=== PATIENT | female | born 2000 | race African-American/Black ===

== ENCOUNTER 2019-06-18 10:02 | Emergency (ER) | payer MEDICAID, OTHER | END 2019-06-18 12:15 | disposition home or self-care (01) | LOC: ERS 10:02 → EDSEX 10:02 → ERS 12:15 | DX: O99.89 Other specified diseases and conditions complicating pregnancy, childbirth and the puerperium (principal); R42 Dizziness and giddiness; R51 Headache; Z3A.13 13 weeks gestation of pregnancy ==

== ENCOUNTER 2019-08-08 15:42 | Emergency (ER) | payer OTHER ==
[2019-08-08 16:13] LABS: #Eosinphils 0.7 thou/uL (0.0-0.7); #Lymphocytes 1.9 thou/uL (1.20-3.40); #Monocytes 0.8 thou/uL (0.11-0.59); #Neutrophils 10.2 thou/uL (1.40-6.50); %Basophils 0.3 % (0.0-1.0); %Eosinophils 4.9 % (0.0-10.0); %Lymphocytes 13.9 % (28.0-48.0); %Monocytes 5.9 % (0.0-4.0); Hemoglobin 12.5 g/dL (12.0-16.0); Mean Corpuscular HGB CONC 34.6 g/dL (32.0-36.0); Mean Corpuscular Hemoglobin 29.5 pg (25.0-35.0); Mean Corpuscular Volume 85.4 fL (78.0-98.0); Platelet Count 280 thou/uL (130-400); RBC Distribution Width 12.4 % (11.5-14.5); Red Blood Cell (RBC) Count 4.23 mill/uL (4.00-5.20); White Blood Cell (WBC) Count 13.6 thou/uL (4.8-10.8)
[2019-08-08 16:36] LABS: ALT (SGPT) 17 U/L (8-55); AST (SGOT) 11 U/L (5-30); Albumin 3.5 g/dL (3.5-5.0); Alkaline Phosphatase 86 U/L (40-100); Anion Gap 10 mmol/L (10-20); BUN (Urea Nitrogen) 5 mg/dL (8.4-21.0); Bilirubin, Total 0.3 mg/dL (0.2-1.2); Calc. Creatinine Clearance 0 mL/min (70-130); Calcium 9.2 mg/dL (7.8-10.44); Carbon Dioxide 22 mmol/L (22-29); Chloride 106 mmol/L (98-107); Estimated GFR-MDRD Greater than 90; Globulin 3.4 g/dL (2.4-3.5); Glucose 98 mg/dL (70-105); Potassium 3.4 mmol/L (3.5-5.1); Protein, Total 6.9 g/dL (6.0-8.3); Sodium 135 mmol/L (136-145)
[2019-08-08] MEDS ORDERED: Metoclopramide HCl 10 MG/2 ML VIAL ONE (19:16)
[2019-08-08 22:18] LABS: Bilirubin Negative (Negative); Blood, Urine Negative (Negative); Calcium Oxalate Crystals 3+ HPF (None Seen); Clarity Turbid (Clear); Glucose, Urine (Dipstick) Normal (Negative); Leukocyte 500 Leu/uL (Negative); Nitrite Negative (Negative); Protein, Urine (Dipstick) 30 mg/dL (Neg-Trace); RBC/HPF 0-3 HPF (0-3); Urobilinogen Normal mg/dL (Less than 2); WBC/HPF 21-50 HPF (0-3)
[2019-08-08 22:25] LABS: Bacteria/HPF 3+ HPF (None Seen)
[2019-08-08 22:26] LABS: Mucous/LPF 3+ LPF (<2+)
== END 2019-08-08 22:25 | disposition home or self-care (01) ==
LOC: ERS 15:42
DX: O23.42 Unspecified infection of urinary tract in pregnancy, second trimester (principal); O21.2 Late vomiting of pregnancy; O10.912 Unspecified pre-existing hypertension complicating pregnancy, second trimester; Z3A.21 21 weeks gestation of pregnancy
CPT/HCPCS: 36415; 80053; 81003; 81015; 85025; 87804; 96365; 96366; J2765

== ENCOUNTER 2019-11-07 16:40 | Day surgery (SDC) | payer OTHER ==
[2019-11-07 17:15] VITALS: BP 121/68; TEMP 98.8; BMI 42.4
[2019-11-07] MEDS ORDERED: Betamet Acet/Betamet Na Ph 30 MG/5 ML VIAL ONE (17:59)
[2019-11-07] MEDS ORDERED: Betamet Acet/Betamet Na Ph 30 MG/5 ML VIAL IM SCH (18:00)
[2019-11-07] MEDS ORDERED: hydrALAZINE 20 MG/ML VIAL SLOW IVP PRN (18:10)
--- NOTE | 2019-11-07 18:49 | PRG ---
DATE OF SERVICE: 11/07/2019 PRIMARY OB: Dr. Arelis Sparks. CHIEF COMPLAINT: Decreased CHRISTY with elevated blood pressures. HISTORY OF PRESENT ILLNESS: The patient is a 19-year-old G1, P0 female with an intrauterine at 33 weeks, who was sent from the office today with concerns of low CHRISTY of 5 and blood pressures in the upper normal range. The patient reports that since she got that she has noticed her blood pressures have been running higher than normal. She reports that they run about in the 130s, that she has been checking her blood pressures at home and that is the range that she has been getting from her systolic pressures. Growth scan was done in the office today and baby is noted to be in the 19th percentile. CHRISTY at that time was 5. The patient denies headache, chest pain, shortness of breath. She has had some nausea and vomiting recently and also has had 4 or 5 days of diarrhea with 4 or 5 episodes a day, every other one being in her words large volume. The patient reports that she is urinating normally, but the urine is yellow. She denies any new rashes, hip problems, knee problems, muscle weakness. She denies vaginal bleeding or leakage of fluid. She does report some incontinence when she coughs or sneezes. She denies urinary urgency or frequency. PAST MEDICAL HISTORY: Obesity. PAST SURGICAL HISTORY: Tonsillectomy. ALLERGIES: NO KNOWN DRUG ALLERGIES. MEDICATIONS: vitamins. SOCIAL HISTORY: Denies drug, alcohol, or tobacco use. OB LABS: Unavailable at time of dictation. REVIEW OF SYSTEMS: Per HPI. PHYSICAL EXAMINATION: VITAL SIGNS: Blood pressure 135/75, heart rate of 107, respiratory rate of 18. Her pressures about the following 45 minutes have all been in the 120s over 60s to 70s. Heart rate in the 100s. Temperature 98.8. GENERAL: She appears to be in no acute distress. She is alert, oriented, cooperative, and pleasant to interact with. HEENT: Head is normocephalic and atraumatic. LUNGS: Clear to auscultation bilaterally. HEART: Has regular rate and rhythm. ABDOMEN: Gravid, soft, nontender. EXTREMITIES: Nontender, nonedematous. She has no CVA tenderness. GENITOURINARY: Vulva is without masses, lesions, or erythema. Vagina is moist. Cervix is visibly closed. There is no pulling on Valsalva or bearing down. heart tracing shows the fetus with a baseline in the 150s with moderate long-term variability, positive 15 x 15 accelerations, no decelerations. No contractions visible on the monitor. AmniSure test was collected by Dr. Sparks and sent to the hospital. Results are negative. ASSESSMENT AND PLAN: The patient is a 19-year-old G1, P0 female with an intrauterine at 33 weeks with a decreased CHRISTY of 5. Blood pressures here have all been within normal limits. She has no concerning symptomatology and no evidence of rupture of membranes. The patient has been counseled with recommendations of steroids today and tomorrow with a repeat ultrasound tomorrow to see if her CHRISTY has improved. It is possible that the patient's last week or so could have put her in a dehydrated state, possibly affecting hydration of the baby. Baby's size does not indicate IUGR at this time, fetus has a category 1 tracing, reactive NST. The patient is being discharged home after receiving her first dose of steroids, 12 mg of betamethasone IM. She will be back tomorrow for a second shot. If her CHRISTY worsens tomorrow, then we will re-evaluate. If it is improving, then patient can follow up with her primary OB as scheduled. Job ID: [id number]
== END 2019-11-07 18:25 | disposition home health service (06) ==
LOC: L&D/OP 16:40
PROVIDERS: ATTEND Student in an Organized Health Care Education/Training Program
DX: O41.03X0 Oligohydramnios, third trimester, not applicable or unspecified (principal); O99.89 Other specified diseases and conditions complicating pregnancy, childbirth and the puerperium; R03.0 Elevated blood-pressure reading, without diagnosis of hypertension; O99.213 Obesity complicating pregnancy, third trimester; E66.9 Obesity, unspecified; Z3A.33 33 weeks gestation of pregnancy
CPT/HCPCS: 84112; 87077; 87081; 96372; 99283; J0702

== ENCOUNTER 2019-11-08 17:09 | Day surgery (SDC) | payer OTHER ==
[2019-11-08] MEDS ORDERED: Betamet Acet/Betamet Na Ph 30 MG/5 ML VIAL ONE (17:25)
[2019-11-08] MEDS ORDERED: Betamet Acet/Betamet Na Ph 30 MG/5 ML VIAL IM SCH (17:30)
--- NOTE | 2019-11-08 18:43 | ULT ---
[facility] History: Evaluate amniotic fluid index Comparison: None. Findings: Real-time grayscale, color, and spectral analysis of the gravid uterus was performed. The amniotic fluid index measures 10.2 cm. heart rate documented at 152 bpm. The placenta is posterior and the position is vertex. Impression: Normal amniotic fluid index of 10.2 cm.
--- NOTE | 2019-11-09 11:44 | SS ---
DATE OF ADMISSION: 11/08/2019 DATE OF DISCHARGE: 11/08/2019 REGULAR PHYSICIAN: Arelis Sparks MD EVALUATING PHYSICIAN: Jairo Vee MD CHIEF COMPLAINT: Here for followup, 2nd betamethasone shot. HISTORY OF PRESENT ILLNESS: Ms. David is a 19-year-old white G1, P0 with an estimated date of confinement of 12/21/2019, who was seen yesterday for concern of elevated blood pressures and found to have an CHRISTY of 5. She was given a dose of Celestone and was told to return today for re-evaluation and a 2nd Celestone shot. She is without complaints today. She reports active movement. She denies ruptured membranes or leakage of fluid. PAST MEDICAL HISTORY: None. PAST SURGICAL HISTORY: Tonsillectomy. CURRENT MEDICATIONS: vitamins. ALLERGIES: NO KNOWN ALLERGIES. SOCIAL HISTORY: Denies alcohol, tobacco, or drug use. REVIEW OF SYSTEMS: Denies nausea, vomiting, fever, chills, ruptured membranes, vaginal bleeding, or recent travel. PHYSICAL EXAMINATION: VITAL SIGNS: Stable. She is afebrile. Serial blood pressures here are 110 to 120s systolic over 70s diastolic. GENERAL: She is in no acute distress. heart rate tracing is stable. There are no decelerations. No uterine contractions are seen. Ultrasound done today shows an CHRISTY of 10 per verbal report from materials mgmt tech. Second betamethasone shot is ordered and given. ASSESSMENT: 1. Thirty-three week intrauterine . 2. No evidence of elevated blood pressures at this time. 3. Decreased amniotic fluid index, now resolved. PLAN: The patient will be dismissed to home. She was given PIH precautions and told to hydrate and rest at home. She states she has an appointment with Dr. Sparks in [address] Sparks was notified of this encounter. Job ID: [id number]
== END 2019-11-08 18:40 | disposition home or self-care (01) ==
LOC: L&D/OP 17:09
PROVIDERS: ATTEND Obstetrics & Gynecology
DX: Z29.8 Encounter for other specified prophylactic measures (principal); Z3A.33 33 weeks gestation of pregnancy
CPT/HCPCS: 76815; 96372; 99281; J0702

== ENCOUNTER 2019-11-26 11:52 | Inpatient (IN) | payer OTHER ==
[~2019-11-26 11:52] MED LIST: Bupivacaine/Epinephrine 0.25% 30 ML VIAL ONE
[2019-11-26 13:02] VITALS: BMI 43.6
[2019-11-26] MEDS ORDERED: Butorphanol Tartrate 1 MG/ML VIAL SLOW IVP PRN (13:11)
[2019-11-26] MEDS ORDERED: Ondansetron PF 4 MG/2 ML Vial IVP PRN (13:11)
[2019-11-26] MEDS ORDERED: hydrALAZINE 20 MG/ML VIAL SLOW IVP PRN (13:11)
[2019-11-26] MEDS ORDERED: Ibuprofen 800 MG TAB PO PRN (13:11)
[2019-11-26] MEDS ORDERED: Carboprost 250 MCG/ML AMP IM PRN (13:11)
[2019-11-26] MEDS ORDERED: Zolpidem Tartrate 5 MG TAB PO PRN (13:11)
[2019-11-26] MEDS ORDERED: Misoprostol 200 MCG TAB PR PRN (13:11)
[2019-11-26] MEDS ORDERED: Lidocaine 1% (PF) 30 ML VIAL SC PRN (13:11)
[2019-11-26] MEDS ORDERED: Methylergonovine 0.2 MG/ML VIAL IM PRN (13:11)
[2019-11-26] MEDS ORDERED: Diphenoxylate HCl/Atropine Tablet PO PRN (13:11)
[2019-11-26] MEDS ORDERED: NS / Oxytocin 40 units/1000ml 1,000 ML IV PRN (13:11)
[2019-11-26] MEDS ORDERED: Promethazine HCl 25 MG/ML VIAL IM PRN (13:11)
[2019-11-26] MEDS ORDERED: NS w/ Oxytocin 10 units 500 ML IV SCH (13:15)
[2019-11-26] MEDS ORDERED: Vancomycin 1 GM/200 ML BAG ONE (13:42)
[2019-11-26 13:53] LABS: Hemoglobin 12.5 g/dL (12.0-16.0); Mean Corpuscular HGB CONC 33.1 g/dL (32.0-36.0); Mean Corpuscular Hemoglobin 30.1 pg (25.0-35.0); Mean Corpuscular Volume 90.9 fL (78.0-98.0); Mean Platelet Volume 8.6 fL (7.4-10.4); Platelet Count 248 thou/uL (130-400); RBC Distribution Width 13.1 % (11.5-14.5); Red Blood Cell (RBC) Count 4.13 mill/uL (4.00-5.20); White Blood Cell (WBC) Count 15.2 thou/uL (4.8-10.8)
[2019-11-26 14:05] LABS: ALT (SGPT) 7 U/L (8-55); AST (SGOT) 12 U/L (5-34); Albumin 3.2 g/dL (3.5-5.0); Alkaline Phosphatase 121 U/L (40-100); Anion Gap 12 mmol/L (10-20); BUN (Urea Nitrogen) 7 mg/dL (7.0-18.7); Bilirubin, Total Less than 0.2 mg/dL (0.2-1.2); Calc. Creatinine Clearance 314 mL/min (70-130); Calcium 9.1 mg/dL (7.8-10.44); Carbon Dioxide 22 mmol/L (22-29); Chloride 106 mmol/L (98-107); Estimated GFR-MDRD Greater than 90; Globulin 2.8 g/dL (2.4-3.5); Glucose 89 mg/dL (70-105); Potassium 3.8 mmol/L (3.5-5.1); Sodium 136 mmol/L (136-145)
[2019-11-26] MEDS: Misoprostol 100 MCG TAB VAG SCH ×3 (14:20→22:36)
[2019-11-26] MEDS: Vancomycin 1 GM in Premix Bag 1 BAG IVPB SCH (14:21)
[2019-11-26 14:22] LABS: HBSAg Index 0.18 S/CO (0-0.99); Hep B Surf Ag Non-Reactive S/CO (NonReactive)
[2019-11-26 14:23] LABS: Syphilis Antibody Nonreactive (Nonreactive); Syphilis Antibody Index 0.09 S/CO (<1.00 Non-Reactive)
[2019-11-26] MEDS: Lactated Ringer's 1,000 ML IV SCH ×2 (17:43→22:13)
[2019-11-27] MEDS ORDERED: Fentanyl 4 mcg/Bup 0.1% Cadd 100 ML ONE (00:34)
[2019-11-27] MEDS: Lactated Ringer's 1,000 ML IV SCH (01:13)
[2019-11-27] MEDS: Vancomycin 1 GM in Premix Bag 1 BAG IVPB SCH (01:57)
[2019-11-27] MEDS ORDERED: Promethazine HCl 25 MG/ML VIAL IM PRN ×2 (02:03→07:03)
[2019-11-27] MEDS ORDERED: Ondansetron PF 4 MG/2 ML Vial IVP PRN ×2 (02:03→07:03)
[2019-11-27] MEDS ORDERED: Lactated Ringer's 500 ML IV PRN (02:03)
[2019-11-27] MEDS ORDERED: Naloxone HCl 0.4 mg/ml Vial IVP PRN ×2 (02:03)
[2019-11-27] MEDS ORDERED: EPHEDRINE 25 MG/5 ML SYRINGE SLOW IVP PRN (02:03)
[2019-11-27] MEDS ORDERED: diphenhydrAMINE 50 MG/ML VIAL IVP PRN (02:03)
[2019-11-27] MEDS ORDERED: Communication Order-Pharmacy FS SCH (02:15)
[2019-11-27] MEDS ORDERED: Fentanyl 4 mcg/Bupivacaine 0.1% Cassette 100 ML EPIDURAL SCH (02:15)
[2019-11-27] MEDS ORDERED: Terbutaline Sulfate 1 MG/ML VIAL ONE (03:39)
--- NOTE | 2019-11-27 05:40 | PDOC.LDHP ---
Labor and Delivery H&P Chief complaint: scheduled induction HPI: 19yo at 36w3d by LMP sent over for IOL 2/2 oligohydramnios on sono. s/p cytotec ripening. Current gestational age (weeks): 36 Due date: 12/21/19 Dating criteria: last menstrual period Grav: 1 Para: 0 Current complications: none Abnormal US findings: Yes (SGA, oligohydramnios, pyelectasis bilateral) Past Medical History: depression Current medications: pre- vitamins, other (sertraline) Previous surgical history: none Allergies/Adverse Reactions: Allergies Allergy/AdvReac Type Severity Reaction Status Date / Time acetaminophen Allergy Anaphylaxis Verified 11/07/19 17:06 Penicillins Allergy Rash Verified 11/07/19 17:06 Social history: none - Physical Exam Vital signs reviewed and normal: yes General: NAD Heart: RRR Lungs: CTAB Abdomen: gravid Extremeties: no edema FHT: category 2, variable decelerations Charlton contractions every: 2-3min - Vaginal Exam cm dilated: 10 Effacement: 100% Station: 3+ - OB Labs Blood type: O RH: positive Antibody Screen: negative HIV: negative RPR: negative HEPSAg: negative 1 hour GCT: negative GBS: positive Urine drug screen: negative Rubella: immune - Assessment L&D Assessment: medically indicated induction - Plan Plan: admit to L&D, cervical ripening, labor augmentation if indicated, GBS antibiotic prophylaxis, informed consent obtained, anesthesia consult for pain management
--- NOTE | 2019-11-27 05:43 | PDOC.OPDEL ---
OB Operative/Delivery Note Delivery Dr/Surgeon: Bridger Assist: n/a Pre-Delivery Diagnosis: medically indicated induction Procedure/Post Delivery Dx: spontaneous vaginal delivery Weeks gestation: 36 Anesthesia: epidural - Findings A Sex: male Weight: 4 lb 10 oz - 1 min: 8 - 5 min: 9 - Additional Findings/Plan Placenta delivered: spontaneous Repaired Obstetrical Laceration: none Estimated blood loss: 20cc Post delivery plan: routine recovery
[2019-11-27] MEDS: Misoprostol 100 MCG TAB VAG SCH ×2 (07:01→07:02)
[2019-11-27] MEDS ORDERED: Lanolin Ointment 7 GM TUBE TOP PRN (07:03)
[2019-11-27] MEDS ORDERED: Bisacodyl 10 MG SUPP PR PRN (07:03)
[2019-11-27] MEDS ORDERED: Preparation H Ointment 28 GM TUBE PR PRN (07:03)
[2019-11-27] MEDS ORDERED: Milk Of Magnesia 30 ML UDCUP PO PRN (07:03)
[2019-11-27] MEDS ORDERED: diphenhydrAMINE 25 MG CAP PO PRN (07:03)
[2019-11-27] MEDS ORDERED: hydrALAZINE 20 MG/ML VIAL SLOW IVP PRN (07:03)
[2019-11-27] MEDS ORDERED: Benzocaine-Menthol 82.5 ML CAN TOP PRN (07:03)
[2019-11-27] MEDS ORDERED: Adacel (T-DAP) 0.5 ML SYRINGE IM ONE (07:03)
[2019-11-27] MEDS ORDERED: traMADol HCl 50 MG TAB PO PRN (07:03)
[2019-11-27] MEDS ORDERED: NS / Oxytocin 40 units/1000ml 1,000 ML IV SCH (07:03)
[2019-11-27] MEDS: Docusate Calcium (SURFAK) 240 MG CAP PO SCH ×2 (09:40→21:37)
[2019-11-27] MEDS: Ferrous Sulfate 325 MG TAB PO SCH ×2 (09:40→18:07)
[2019-11-27] MEDS: Prenatal Vitamin 1 TAB PO SCH (09:59)
[2019-11-27] MEDS: Ibuprofen 800 MG TAB PO SCH ×2 (14:14→21:37)
[2019-11-28] MEDS: Ibuprofen 800 MG TAB PO SCH ×3 (05:33→22:17)
[2019-11-28] MEDS: Ferrous Sulfate 325 MG TAB PO SCH ×2 (08:18→16:34)
[2019-11-28] MEDS: Prenatal Vitamin 1 TAB PO SCH (08:19)
[2019-11-28] MEDS: Docusate Calcium (SURFAK) 240 MG CAP PO SCH ×2 (08:19→20:13)
[2019-11-28] MEDS: traMADol HCl 50 MG TAB PO PRN ×2 (11:59→20:13)
--- NOTE | 2019-11-28 20:27 | PDOC.PP ---
Post Progress Note Post Day #: 1 PO intake tolerated: yes Flatus: yes Ambulation: yes Vital Signs (12 hours) Temp Pulse Resp BP Pulse Ox 11/28/19 19:36 99.8 F H 106 H 20 135/60 99 Weight Weight 313 lb - Physical Examination General: NAD Respiratory: non-labored breathing Abdominal: no distention, appropriately TTP Fundus firm & at: umb Neurological: no gross focal deficits Psychiatric: normal affect Result Diagrams: 11/26/19 13:33 11/26/19 13:33 Additional Labs: Post Labs Blood Type O POSITIVE 11/26/19 14:49 Hep Bs Antigen Non-Reactive S/CO (NonReactive) 11/26/19 13:33 - Assessment/Plan PPD1 s/p PTSVD VSSAF Doing well, lochia < menses, pain controlled Rh pos RImm Cont PP care, home tomorrow.
[2019-11-29] MEDS: Ibuprofen 800 MG TAB PO SCH (04:53)
[2019-11-29] MEDS: Ferrous Sulfate 325 MG TAB PO SCH (07:48)
[2019-11-29] MEDS: Prenatal Vitamin 1 TAB PO SCH (07:51)
[2019-11-29] MEDS: Docusate Calcium (SURFAK) 240 MG CAP PO SCH (07:51)
[2019-11-29 09:39] VITALS: BP 114/55; TEMP 97.9
== END 2019-11-29 14:25 | disposition home or self-care (01) | DRG 807 ==
LOC: L&D 11:52 → 3SW 11-27 08:33
PROVIDERS: ADMIT Student in an Organized Health Care Education/Training Program; ATTEND Student in an Organized Health Care Education/Training Program
PROC: 10E0XZZ Delivery of Products of Conception, External Approach (ICD-10-PCS; principal; 2019-11-27)
PROC: 3E033VJ Introduction of Other Hormone into Peripheral Vein, Percutaneous Approach (ICD-10-PCS; 2019-11-27)
DX: O41.03X0 Oligohydramnios, third trimester, not applicable or unspecified (principal); Z37.0 Single live birth; Z3A.36 36 weeks gestation of pregnancy; O99.344 Other mental disorders complicating childbirth; F99 Mental disorder, not otherwise specified
CPT/HCPCS: 36415; 51702; 80053; 85027; 86780; 86850; 86900; 86901; 87340; 88307; J3105; J3370

== ENCOUNTER 2021-10-17 10:28 | Outpatient (CLI) | payer OTHER | END 2021-10-17 10:29 | disposition home or self-care (01) | LOC: BICULT 10:28 | PROVIDERS: ATTEND Family Medicine | DX: O09.892 Supervision of other high risk pregnancies, second trimester (principal); Z3A.20 20 weeks gestation of pregnancy | CPT/HCPCS: 76805 ==

== ENCOUNTER 2021-11-23 06:09 | Emergency (ER) | payer OTHER ==
[2021-11-23] MEDS ORDERED: Ondansetron PF 4 MG/2 ML Vial ONE (06:25)
[2021-11-23 06:45] LABS: #Lymphocytes 0.5 thou/uL (1.20-3.40); #Monocytes 0.4 thou/uL (0.11-0.59); #Neutrophils 7.6 thou/uL (1.40-6.50); %Basophils 0.4 % (0.0-1.0); %Eosinophils 0.3 % (0.0-10.0); %Lymphocytes 6.1 % (21.0-51.0); %Monocytes 4.6 % (0.0-10.0); %Neutrophils 88.6 % (42.0-75.0); Hemoglobin 12.7 g/dL (12.0-16.0); Mean Corpuscular HGB CONC 33.6 g/dL (32.0-36.0); Mean Corpuscular Hemoglobin 29.9 pg (27.0-31.0); Mean Platelet Volume 6.6 fL (7.4-10.4); Platelet Count 293 thou/uL (130-400); RBC Distribution Width 12.7 % (11.5-14.5); Red Blood Cell (RBC) Count 4.25 mill/uL (4.20-5.40); White Blood Cell (WBC) Count 8.6 thou/uL (4.8-10.8)
[2021-11-23 07:04] LABS: ALT (SGPT) 7 U/L (8-55); AST (SGOT) 13 U/L (5-34); Albumin 3.3 g/dL (3.5-5.0); Alkaline Phosphatase 84 U/L (40-110); Anion Gap 15 mmol/L (10-20); BUN (Urea Nitrogen) 6 mg/dL (7.0-18.7); Bilirubin, Total 0.6 mg/dL (0.2-1.2); Calc. Creatinine Clearance 0 mL/min (70-130); Calcium 8.8 mg/dL (7.8-10.44); Carbon Dioxide 18 mmol/L (22-29); Chloride 106 mmol/L (98-107); Globulin 3.4 g/dL (2.4-3.5); Glucose 100 mg/dL (70-105); Lipase 13 U/L (8-78); Potassium 3.7 mmol/L (3.5-5.1); Protein, Total 6.7 g/dL (6.0-8.3); Sodium 135 mmol/L (136-145)
[2021-11-23 07:29] LABS: Bacteria/HPF None Seen HPF (None Seen); Bilirubin Negative (Negative); Blood, Urine Negative (Negative); Clarity Clear (Clear); Glucose, Urine (Dipstick) Normal (Negative); Ketone, Urine Greater than 150 mg/dL (Negative); Leukocyte 500 Leu/uL (Negative); Nitrite Negative (Negative); Protein, Urine (Dipstick) 50 mg/dL (Neg-Trace); Specific Gravity, Urine 1.031 (1.002-1.036); Urobilinogen Normal mg/dL (Less than 2); pH, Urine 6.5 (5.0-9.0)
== END 2021-11-23 09:00 | disposition short-term general hospital (02) ==
LOC: ERS 06:09
DX: O99.891 Other specified diseases and conditions complicating pregnancy (principal); R10.84 Generalized abdominal pain; O99.282 Endocrine, nutritional and metabolic diseases complicating pregnancy, second trimester; E86.0 Dehydration; O21.2 Late vomiting of pregnancy; O10.912 Unspecified pre-existing hypertension complicating pregnancy, second trimester; Z3A.27 27 weeks gestation of pregnancy
CPT/HCPCS: 36415; 80053; 81003; 81015; 83690; 85025; 96374; J2405

== ENCOUNTER 2022-01-13 08:57 | Outpatient (CLI) | payer OTHER | END 2022-01-13 08:58 | disposition home or self-care (01) | LOC: BICULT 08:57 | PROVIDERS: ATTEND Family Medicine | DX: O09.893 Supervision of other high risk pregnancies, third trimester (principal); Z3A.33 33 weeks gestation of pregnancy | CPT/HCPCS: 76815 ==

== ENCOUNTER 2022-11-26 16:02 | Emergency (ER) | payer OTHER ==
[2022-11-26 16:37] LABS: #Basophils 0.1 thou/uL (0.0-0.2); #Eosinphils 0.4 thou/uL (0.0-0.7); #Lymphocytes 3.2 thou/uL (1.20-3.40); #Monocytes 0.9 thou/uL (0.11-0.59); #Neutrophils 8.8 thou/uL (1.40-6.50); %Basophils 0.4 % (0.0-1.0); %Eosinophils 3.2 % (0.0-10.0); %Lymphocytes 23.7 % (21.0-51.0); %Monocytes 6.9 % (0.0-10.0); %Neutrophils 65.8 % (42.0-75.0); Hemoglobin 12.9 g/dL (12.0-16.0); Mean Corpuscular HGB CONC 33.8 g/dL (32.0-36.0); Mean Corpuscular Hemoglobin 29.4 pg (27.0-31.0); Mean Platelet Volume 7.5 fL (7.4-10.4); Platelet Count 280 10x3/uL (130-400); RBC Distribution Width 12.8 % (11.5-14.5); Red Blood Cell (RBC) Count 4.39 mill/uL (4.20-5.40); White Blood Cell (WBC) Count 13.4 10x3/uL (4.8-10.8)
[2022-11-26 16:57] LABS: Anion Gap 14 mmol/L (10-20); BUN (Urea Nitrogen) 8 mg/dL (7.0-18.7); Calc. Creatinine Clearance 0 mL/min (70-130); Calcium 9.3 mg/dL (7.8-10.44); Carbon Dioxide 21 mmol/L (22-29); Chloride 104 mmol/L (98-107); Estimated GFR 117; Glucose 82 mg/dL (70-105); Potassium 3.8 mmol/L (3.5-5.1); Sodium 135 mmol/L (136-145)
[2022-11-26 18:00] LABS: Bilirubin Negative (Negative); Blood, Urine Negative (Negative); Clarity Turbid (Clear); Glucose, Urine (Dipstick) Normal (Negative); Ketone, Urine Negative (Negative); Leukocyte 500 Leu/uL (Negative); Nitrite Negative (Negative); Protein, Urine (Dipstick) Negative (Neg-Trace); RBC/HPF 0-3 HPF (0-3); Specific Gravity, Urine 1.006 (1.002-1.036); Urobilinogen Normal mg/dL (Less than 2); pH, Urine 6.5 (5.0-9.0)
[2022-11-26 18:01] LABS: Bacteria/HPF 1+ HPF (None Seen)
== END 2022-11-26 18:40 | disposition home or self-care (01) ==
LOC: ERS 16:02
DX: O20.8 Other hemorrhage in early pregnancy (principal); D72.829 Elevated white blood cell count, unspecified; Z3A.01 Less than 8 weeks gestation of pregnancy
CPT/HCPCS: 36415; 76856; 80048; 81003; 81015; 84702; 85025; 86900; 86901

== ENCOUNTER 2023-03-27 14:01 | Outpatient (CLI) | payer OTHER | END 2023-03-27 14:02 | disposition home or self-care (01) | LOC: BICULT 14:01 | PROVIDERS: ATTEND Family Medicine | DX: O09.892 Supervision of other high risk pregnancies, second trimester (principal); Z3A.25 25 weeks gestation of pregnancy | CPT/HCPCS: 76805 ==

== ENCOUNTER 2023-05-02 08:56 | Emergency (ER) | payer OTHER, SELFPAY | END 2023-05-02 09:53 | disposition home or self-care (01) | LOC: ERS 08:56 | DX: H10.9 Unspecified conjunctivitis (principal) | CPT/HCPCS: 99283 ==

== ENCOUNTER 2023-10-10 06:28 | Emergency (ER) | payer SELFPAY ==
[2023-10-10 07:29] LABS: Influenza A by NAA Not Detected (NotDetected); Influenza B by NAA Not Detected (NotDetected); SARS-CoV-2 NAA Rapid Test DETECTED (NotDetected)
== END 2023-10-10 06:43 | disposition home or self-care (01) ==
LOC: ERS 06:28
DX: U07.1 COVID-19 (principal); J11.1 Influenza due to unidentified influenza virus with other respiratory manifestations
CPT/HCPCS: 99283

== ENCOUNTER 2023-10-25 19:50 | Emergency (ER) | payer SELFPAY ==
[2023-10-25] MEDS ORDERED: Ibuprofen 200 MG TAB ONE (20:11)
[2023-10-25] MEDS ORDERED: Vancomycin 1 GM/200 ML (FROZEN) BAG ONE (20:20)
[2023-10-25] MEDS ORDERED: Morphine 4 MG/ML VIAL ONE (20:20)
[2023-10-25 20:24] LABS: #Basophils 0.1 thou/uL (0.0-0.2); #Eosinphils 0.4 thou/uL (0.0-0.7); #Monocytes 0.8 thou/uL (0.11-0.59); %Basophils 0.4 % (0.0-1.0); %Eosinophils 3.1 % (0.0-10.0); %Lymphocytes 25.3 % (21.0-51.0); %Monocytes 5.8 % (0.0-10.0); %Neutrophils 65.2 % (42.0-75.0); Hematocrit 37.2 % (36.0-47.0); Hemoglobin 12.4 g/dL (12.0-16.0); Mean Corpuscular HGB CONC 33.3 g/dL (32.0-36.0); Mean Corpuscular Hemoglobin 28.8 pg (27.0-31.0); Mean Corpuscular Volume 86.3 fl (78.0-98.0); Mean Platelet Volume 9.6 fL (7.4-10.4); Platelet Count 306 10x3/uL (130-400); RBC Distribution Width 12.9 % (11.5-14.5); Red Blood Cell (RBC) Count 4.31 mill/uL (4.20-5.40); White Blood Cell (WBC) Count 13.7 10x3/uL (4.8-10.8)
[2023-10-25 20:46] LABS: ALT (SGPT) 17 U/L (8-55); AST (SGOT) 21 U/L (5-34); Albumin 3.9 g/dL (3.5-5.0); Alkaline Phosphatase 102 U/L (40-110); Anion Gap 10 mmol/L (10-20); BUN (Urea Nitrogen) 11 mg/dL (7.0-18.7); Bilirubin, Total 0.3 mg/dL (0.2-1.2); Calc. Creatinine Clearance 0 mL/min (70-130); Calcium 9.1 mg/dL (7.8-10.44); Carbon Dioxide 28 mmol/L (22-29); Chloride 104 mmol/L (98-107); Estimated GFR 86; Globulin 3.6 g/dL (2.4-3.5); Glucose 92 mg/dL (70-105); Potassium 3.7 mmol/L (3.5-5.1); Protein, Total 7.5 g/dL (6.0-8.3); Sodium 138 mmol/L (136-145)
[2023-10-25] MEDS ORDERED: Clindamycin/D5W 900 MG in Premix 1 BAG IVPB SCH (22:45)
== END 2023-10-25 23:25 | disposition home or self-care (01) ==
LOC: ERS 19:50
DX: L03.011 Cellulitis of right finger (principal)
CPT/HCPCS: 36415; 80053; 83605; 85025; 86140; 87040; 96361; 96365; 96366; 96367; 96375; J2270; J3370-JW; J3490

== ENCOUNTER 2024-06-10 23:16 | Emergency (ER) | payer SELFPAY ==
[2024-06-10] MEDS ORDERED: Mag-Al 1200 mg/1200 mg/30 ML UDCUP ONE (23:53)
[2024-06-10] MEDS ORDERED: Famotidine/PF 20 mg/2ml Vial ONE (23:54)
[2024-06-10] MEDS ORDERED: Lidocaine Viscous Sol 2% 15 ml UD Cup ONE (23:54)
[2024-06-10 23:55] LABS: Bilirubin Negative (Negative); Blood, Urine Negative (Negative); CAUTI Indications for Culture Pelvic or flank pain; Clarity Turbid (Clear); Glucose, Urine (Dipstick) Normal (Negative); Ketone, Urine Negative (Negative); Leukocyte 500 Leu/uL (Negative); Nitrite Negative (Negative); Protein, Urine (Dipstick) 10 mg/dL (Neg-Trace); Specific Gravity, Urine 1.023 (1.002-1.036); WBC/HPF 21-50 HPF (0-3)
[2024-06-10 23:56] LABS: Bacteria/HPF 1+ HPF (None Seen)
[2024-06-10 23:57] LABS: Urine Culture Reflex Yes Yes
[2024-06-11 00:21] LABS: #Basophils 0.06 10x3/uL (0.0-0.2); %Basophils 0.5 % (0.0-1.0); %Eosinophils 3.8 % (0.0-10.0); %Lymphocytes 34.2 % (21.0-51.0); %Monocytes 6.9 % (0.0-10.0); %Neutrophils 54.4 % (42.0-75.0); Hematocrit 38.8 % (36.0-47.0); Hemoglobin 12.5 g/dL (12.0-16.0); Mean Corpuscular HGB CONC 32.2 g/dL (32.0-36.0); Mean Corpuscular Hemoglobin 27.7 pg (27.0-31.0); Mean Platelet Volume 9.9 fL (7.4-10.4); Platelet Count 258 10x3/uL (130-400); Red Blood Cell (RBC) Count 4.51 mill/uL (4.20-5.40)
[2024-06-11 00:38] LABS: BHCG - Serum Negative (NEGATIVE); Pregs Control Background? CLEAR/WHITE (CLR/WHITE); Pregs Control Bar Appear? YES (CONTROL BAR)
[2024-06-11 00:42] LABS: ALT (SGPT) 13 U/L (8-55); AST (SGOT) 16 U/L (5-34); Albumin 3.4 g/dL (3.5-5.0); Alkaline Phosphatase 97 U/L (40-110); Anion Gap 11 mmol/L (10-20); BUN (Urea Nitrogen) 9 mg/dL (7.0-18.7); Bilirubin, Total 0.2 mg/dL (0.2-1.2); Calc. Creatinine Clearance 0 mL/min (70-130); Calcium 8.8 mg/dL (7.8-10.44); Carbon Dioxide 22 mmol/L (22-29); Chloride 106 mmol/L (98-107); Estimated GFR 107; Globulin 3.4 g/dL (2.4-3.5); Glucose 102 mg/dL (70-105); Lipase 22 U/L (8-78); Potassium 3.7 mmol/L (3.5-5.1); Protein, Total 6.8 g/dL (6.0-8.3); Sodium 135 mmol/L (136-145)
== END 2024-06-11 01:00 | disposition home or self-care (01) ==
LOC: ERS 23:16
DX: N10 Acute pyelonephritis (principal)
CPT/HCPCS: 80053; 81001; 83690; 84703; 85025; 87086; 96374; J3490

== ENCOUNTER 2024-10-09 18:16 | Emergency (ER) | payer SELFPAY ==
[2024-10-09 19:02] LABS: #Basophils Less than 0.03 10x3/uL (0.0-0.2); %Basophils 0.3 % (0.0-1.0); %Eosinophils 0.4 % (0.0-10.0); %Lymphocytes 27.2 % (21.0-51.0); %Monocytes 13.1 % (0.0-10.0); %Neutrophils 58.7 % (42.0-75.0); Hematocrit 39.7 % (36.0-47.0); Hemoglobin 12.8 g/dL (12.0-16.0); Mean Corpuscular HGB CONC 32.2 g/dL (32.0-36.0); Mean Corpuscular Volume 86.9 fL (78.0-98.0); Mean Platelet Volume 9.8 fL (7.4-10.4); Platelet Count 189 10x3/uL (130-400); Red Blood Cell (RBC) Count 4.57 mill/uL (4.20-5.40)
[2024-10-09 19:19] LABS: ALT (SGPT) 26 U/L (Less than 34); AST (SGOT) 39 U/L (11-34); Albumin 3.1 g/dL (3.1-4.5); Alkaline Phosphatase 62 U/L (40-110); Anion Gap 11 mmol/L (10-20); BUN (Urea Nitrogen) 5 mg/dL (7.0-18.7); Bilirubin, Total 0.2 mg/dL (0.3-1.2); Calc. Creatinine Clearance 0 mL/min (70-130); Calcium 8.3 mg/dL (7.8-10.44); Carbon Dioxide 23 mmol/L (22-29); Chloride 112 mmol/L (98-107); Estimated GFR 85; Globulin 2.8 g/dL (2.4-3.5); Glucose 83 mg/dL (70-105); Potassium 3.6 mmol/L (3.5-5.1); Protein, Total 5.9 g/dL (6.0-8.3); Sodium 142 mmol/L (136-145)
[2024-10-09 19:23] LABS: Troponin I 0.014 ng/mL (< 0.028)
[2024-10-09 19:28] LABS: BHCG - Serum Negative (NEGATIVE); Pregs Control Background? CLEAR/WHITE (CLR/WHITE); Pregs Control Bar Appear? YES (CONTROL BAR)
[2024-10-09] MEDS ORDERED: Ibuprofen 800 MG TAB ONE (20:44)
== END 2024-10-09 20:59 | disposition home or self-care (01) ==
LOC: ERS 18:16
DX: J11.00 Influenza due to unidentified influenza virus with unspecified type of pneumonia (principal); J32.9 Chronic sinusitis, unspecified
CPT/HCPCS: 36415; 71045; 80053; 84484; 84703; 85025; 93005

== ENCOUNTER 2025-03-11 14:44 | Emergency (ER) | payer SELFPAY | END 2025-03-11 15:57 | disposition home or self-care (01) | LOC: ERS 14:44 | DX: K08.89 Other specified disorders of teeth and supporting structures (principal); Z79.2 Long term (current) use of antibiotics | CPT/HCPCS: 99283 ==

== ENCOUNTER 2025-05-15 21:32 | Emergency (ER) | payer SELFPAY | END 2025-05-15 22:05 | LOC: ERS 21:32 | DX: Z53.21 Procedure and treatment not carried out due to patient leaving prior to being seen by health care provider (principal) ==